=== PATIENT | male | born 1930 | race Caucasian/White ===

== ENCOUNTER 2016-08-14 11:22 | Inpatient (IN) | payer MEDICARE, OTHER ==
[~2016-08-14] VITALS: Ht 177.8 cm; Wt 80.7 kg
[2016-08-14] VITALS (51 sets, daily range): BP systolic 39–159; BP diastolic 15–108
[~2016-08-14 11:22] MED LIST: AMIO200T2 PO; AMOX25TA PO; ASPI325T2 PO; ATOR20TA PO; CARB-93 PO; CYCL-289 PO; DESI100T PO; DIGO125T PO; ESZO1TAB8 PO; LORA0.5T PO; METH5TAB4 PO; OXAN10TA PO; RIVA10TA PO; SOTA80TA PO; TAMS-12 GT; TAMS-12 PO; ZOLP5TAB2 PO; carbidopa PO
[2016-08-14 11:35] LABS: BASOPHILS # (AUTO) 0.5 /CMM (0.0-0.2); BASOPHILS % (AUTO) 2.5 % (0.0-2.0); EOSINOPHILS % (AUTO) 0.1 % (0.0-6.0); HEMATOCRIT 31 % (39-51); HEMOGLOBIN 10.3 g/dL (13.5-17.5); LYMPHOCYTES # (AUTO) 2.3 /CMM (0.8-4.8); LYMPHOCYTES % (AUTO) 12.3 % (20.0-44.0); MEAN CORPUSCULAR HEMOGLOBIN 26 PG (26.0-33.0); MEAN CORPUSCULAR HGB CONC 33 g/dl (31.0-36.0); MEAN CORPUSCULAR VOLUME 77 fL (80-96); MONOCYTES # (AUTO) 1.2 /CMM (0.1-1.30); MONOCYTES % (AUTO) 6.4 % (2.0-12.0); NEUTROPHILS # (AUTO) 14.5 /CMM (1.8-8.9); NEUTROPHILS % (AUTO) 78.7 % (43.0-81.0); PLATELET COUNT (AUTO) 277 /CMM (150-450); RDW COEFFICIENT OF VARIATION 18.8 (11.5-15.0); WHITE BLOOD COUNT (AUTO) 18.5 K/uL (4.3-11.0)
--- NOTE | 2016-08-14 11:36 | NUR ---
BIB RA FROM HOME FOR SOB AND ALOC, PATIENT IS NON RESPONSIVE TO VERBAL AND PHYSICAL STIMULI, PATIENT PLACED ON MONITOR, MD AT BEDSIDE UPON ARRIVAL, PLACED ON NON REBREATHER, WILL CONTINUE TO MONITOR CLOSELY.
[2016-08-14] MEDS ORDERED: CARB25TA3 PO (11:41)
[2016-08-14] MEDS ORDERED: CEFT1VIA15 IV (11:41)
[2016-08-14] MEDS ORDERED: ASPI81TA2 PO (11:41)
[2016-08-14] MEDS ORDERED: ZOLP6.252 PO (11:41)
[2016-08-14] MEDS ORDERED: VANC125C11 PO (11:41)
[2016-08-14] MEDS ORDERED: CEFD300C3 PO (11:41)
[2016-08-14] MEDS ORDERED: FLUC150T PO (11:41)
[2016-08-14] MEDS ORDERED: [UNRECOGNIZED DRUG - OTHER] PO (11:44)
[2016-08-14 11:45] LABS: CALCIUM, SERUM 9.1 mg/dL (8.5-10.1); CARBON DIOXIDE 21 mmol/L (21-32); CHLORIDE 107 mmol/L (98-107); CREATININE 1.9 mg/dL (0.6-1.3); GLUCOSE 110 mg/dL (74-106); POTASSIUM 5.1 mmol/L (3.5-5.1); SODIUM SERUM 139 mmol/L (136-145); UREA NITROGEN, BLOOD 22 mg/dL (7-18)
[2016-08-14 11:47] LABS: INR 1.44 (0.87-1.13); PROTHROMBIN TIME 15.3 SECS (9.5-12.7)
[2016-08-14 11:51] LABS: ALANINE AMINOTRANSFERASE 35 U/L (12-78); ALKALINE PHOSPHATASE 105 U/L (46-116); ASPARTATE AMINOTRANSFERASE 886 U/L (15-37); BILIRUBIN,DIRECT 0.2 mg/dL (0.0-0.2); BILIRUBIN,TOTAL 0.7 mg/dL (0.2-1.0); TOTAL PROTEIN, SERUM 5.8 g/dL (6.4-8.2)
[2016-08-14 11:53] LABS: TROPONIN I 0.255 ng/mL (0.00-0.056)
[2016-08-14 11:54] LABS: ABG BASE EXCESS -6.3 mmol/L; ABG OXYGEN SATURATION 99.4 % (92.0-98.5); ABG PCO2 23.5 mmHg (35.0-45.0); ABG PH 7.454 (7.350-7.450); ABG PO2 360.3 mmHg (75.0-100.0); AaDO2 329.2 mmHg; COHb 0.5 % (0.5-1.5); MetHb 0.6 % (0.0-1.5); O2Hb 98.3 % (94.0-97.0); SITE, ABG Left Femoral; VENT MODE, BG NON REBREATHER
[2016-08-14] MEDS ORDERED: PIPERACILLIN /TAZOBACTAM 3.375 G in IV D5W 50 ML IV ONE (12:00)
[2016-08-14] MEDS ORDERED: METH20TA9 PO (12:01)
[2016-08-14] MEDS ORDERED: IV NS 0.9% 2,000 ML ONE (12:06)
[2016-08-14] MEDS ORDERED: IV NS 0.9% 500 ML IV ONE ×3 (12:06→18:40)
[2016-08-14] MEDS ORDERED: ACETAMINOPHEN 650 MG/SUPP.RECT RC ONE ×2 (12:06→12:30)
[2016-08-14] MEDS ORDERED: IV SET PRIMARY 1 EA INFUS.SET MC ONE (12:06)
--- NOTE | 2016-08-14 12:07 | NUR ---
CODE SEPSIS CALLED
[2016-08-14] MEDS ORDERED: IV SET PRIMARY PUMP SET 1 EA INFUS.SET MC ONE ×4 (12:08→21:29)
--- NOTE | 2016-08-14 12:13 | NUR ---
PT PLACED ON BIPAP DUE TO INCREASED WOB. BREATH SOUNDS CLEAR BILATERAL. BIPAP SETTINGS BELLOW PER RT DRIVEN PROTCOL: IPAP 15 EPAP 5 RATE 12 FIO2 40% Addendum: 08/14/16 at 1215 by BRANDYN SCOTT RT Amended: Links added.
--- NOTE | 2016-08-14 12:15 | NUR ---
CALLED NURSING SUP. FOR ICU BED
[2016-08-14] MEDS ORDERED: ASPIRIN 300 MG/SUPP.RECT RC ONE ×2 (12:28→12:30)
[2016-08-14] MEDS ORDERED: IV NS 0.9% 1,000 ML IV ONE ×2 (12:30)
[2016-08-14] MEDS ORDERED: VANCOMYCIN 1 GM in IV D5W 250 ML IV ONE ×2 (12:30→14:30)
--- NOTE | 2016-08-14 12:30 | NUR ---
EPIC PAGED, DR.SIMONA Jolly MAT MAKER
[2016-08-14 12:41] LABS: APPEARANCE,URINE Turbid (CLEAR); BILIRUBIN,URINE SMALL (NEGATIVE); BLOOD, URINE Trace-lysed Ery/uL (NEGATIVE); COLOR,URINE Yellow (YELLOW); KETONES,URINE 15 (NEGATIVE); LEUKOCYTE ESTERASE ,URINE Large (NEGATIVE); NITRITE, URINE Negative (NEGATIVE); PH,URINE 5.5 (5.0-8.0); PROTEIN,URINE >=300 mg/dl (NEGATIVE); UGLUCOSE Negative (NEGATIVE); UROBILINOGEN,URINE 0.2 EU/dL (0.2)
[2016-08-14 12:49] LABS: WBC,URINE 21-50 /HPF (0-3)
[2016-08-14 12:50] LABS: SQUAMOUS EPITHELIAL CELL,UR Few /HPF (None Seen); URINE AMORPHOUS URATE Moderate /HPF (None Seen); YEAST,URINE Few /HPF (None Seen)
[2016-08-14 12:51] LABS: BACTERIA,URINE 2+ /HPF (None Seen)
--- NOTE | 2016-08-14 13:00 | NUR ---
86 YEAR OLD WHITE MALE ADMITTED FROM ER VIA [facility] TO ROOM 259. DX SEPSIS. PT ARRIVED MINIMALLY RESPONSIVE WITH SOME RUE SPONTAN MOVEMENT. ABG NOTED AND O2 ON VIA SIMPLE MASK AT 6 LPM N/C. INITIAL SBP 100. AFIB CONTROLLED ON MONITOR. 2.5 LITERS OF NS STARTED IN ER WHERE NOT INFUSEDAND ARRIVED IN FULL BAGS UPON ADMISSION -ALL FLUIDS PUT ON PUMPS AT 1000MLSHR. WILL INFUSE VANCO FROM ER. PT ARRIVED IN LG AMT BROWN STOOL-CLEANED AND KCI MATTRESS APPLIED
--- NOTE | 2016-08-14 13:12 | NUR ---
PT PLACED ON 8LPM O2 FLOW VIA SIMPLE MASK WITH SPO2 100%. BIPAP ON STD BY @ BEDSIDE Addendum: 08/14/16 at 1314 by BRANDYN SCOTT RT Amended: Links added.
--- NOTE | 2016-08-14 13:15 | NUR ---
PT'S FATHER IS AN ER MD AT [facility] AND SON AND PT'S REQUEST DNI/DNR STATUS-ORDERS FOR SAME FORM DR MARCOS
[2016-08-14] MEDS: NOREPINEPHRINE 16 MG in IV D5W 500 ML IV PRN (14:05)
[2016-08-14] MEDS ORDERED: NOREPINEPHRINE 8 MG in IV D5W 500 ML IV PRN (14:30)
[2016-08-14] MEDS ORDERED: MEROPENEM 1 G in IV NS 0.9% 100 ML IV SCH (14:30)
[2016-08-14] MEDS ORDERED: METRONIDAZOLE 500MG/ NS 100ML 100 ML IV SCH (14:30)
[2016-08-14] MEDS ORDERED: IV NS 0.9% 1,000 ML BAG IV ONE (14:30)
[2016-08-14] MEDS ORDERED: ACETAMINOPHEN 325 MG TABLET PO PRN (14:30)
[2016-08-14] MEDS ORDERED: MORPHINE SULFATE INJ 2 MG/ML DISP.SYRIN IV PRN (14:30)
[2016-08-14] MEDS ORDERED: ONDANSETRON HCL/PF 4 MG/2 ML VIAL IVP PRN (14:30)
[2016-08-14] MEDS ORDERED: MEROPENEM 500 MG in IV NS 0.9% 50 ML IV SCH (14:30)
--- NOTE | 2016-08-14 14:34 | NUR ---
D/W TIFFANY MARCOS AND ELIUD. LEVOPHED STARTED AT 1405 FOR SBP 70 AND FLUID CHALLENGES ARE BEING COMPLETED. FAMILY AT BEDSIDE
[2016-08-14] MEDS ORDERED: IV NS 0.9% 100 ML IV PRN (15:00)
[2016-08-14] MEDS ORDERED: SECONDARY IV SET 1 EA INFUS.SET MC ONE ×2 (15:26→16:58)
--- NOTE | 2016-08-14 15:33 | NUR ---
SON DR BLACKWOOD REFUSES NGT AND DR GLADIS KLINE AWARE AND WILL ASK CARDIOLOGY TO SEE (REGARDING BETAPACE, ALSO).
[2016-08-14] MEDS ORDERED: FEE PK DOSING 1 MIN EA MC ONE (15:50)
[2016-08-14] MEDS ORDERED: IV NS 0.9% 1,000 ML IV PRN (16:00)
[2016-08-14] MEDS ORDERED: FLUCONAZOLE IN NS 100 MG in PREMIX 1 EA IV SCH ×2 (16:00)
[2016-08-14] MEDS ORDERED: SOTALOL HCL 80 MG TABLET PO SCH (17:00)
[2016-08-14] MEDS ORDERED: VANCOMYCIN HCL 125 MG/2.5 ML ORAL.SUSP PO SCH (17:00)
[2016-08-14] MEDS ORDERED: CARBIDOPA 25 MG TABLET PO SCH ×3 (17:00)
[2016-08-14] MEDS ORDERED: CARBIDOPA/LEVODOPA 25/100 MG 1 UDTAB PO SCH ×2 (17:00)
[2016-08-14] MEDS: METRONIDAZOLE 500MG/ NS 100ML 100 ML IV SCH (17:00)
[2016-08-14] MEDS: MICAFUNGIN SODIUM 100 MG in IV NS 0.9% 100 ML IV SCH (17:05)
--- NOTE | 2016-08-14 17:15 | NUR ---
ALL PO MEDS ON HOLD PT OBTUNDED AND SON REFUSES NGT. D/W DR AYAKA DE LEÓN WILL BE IN THIS PM
[2016-08-14] MEDS: MEROPENEM 1 G in IV NS 0.9% 100 ML IV SCH (18:11)
--- NOTE | 2016-08-14 18:29 | NUR ---
URINE OUTPUT 35 ML X 4 HR WITH INCREASING LEVOPHED NEED CURRENTLY AT 9 MCG MIN-DR KLINE NOTIFIED
--- NOTE | 2016-08-14 19:00 | NUR ---
FURTHER DROP IN BP WITH INCREASED PRESSOR NEED. NS FLUID CHALLENGE RUNNING. FAMILY AT BEDSIDE
[2016-08-14] MEDS ORDERED: IV NS 0.9% 1,000 ML BAG IV STA (19:25)
[2016-08-14] MEDS ORDERED: PHENYLEPHRINE 80 MG in IV D5W 250 ML IV PRN (19:30)
[2016-08-14 20:06] LABS: CARBON DIOXIDE 15 mmol/L (21-32); CHLORIDE 108 mmol/L (98-107); CREATININE 2.4 mg/dL (0.6-1.3); GLUCOSE 117 mg/dL (74-106); SODIUM SERUM 138 mmol/L (136-145); UREA NITROGEN, BLOOD 26 mg/dL (7-18)
[2016-08-14 20:07] LABS: TROPONIN I 0.287 ng/mL (0.00-0.056)
--- NOTE | 2016-08-14 20:20 | NUR ---
SCHOOL COMMUNITY RELATIONS COORDINATOR NOTES RECEIVED PT IN BED, AWAKE BUT EXTREMELY LETHARGIC. A/O X3, ABLE TO SAY NAME, YEAR AND HOSPITAL. ON O2 VIA NC AT 4 LPM, LASHON FAIR. TELE READS CONTROLLED AFIB IN 80s. ARCHER CATH IN PLACE, MINIMAL TO NO URINE OUTPUT. MILD LUNG CONGESTION TO AUSCULTATION. NO NGT AND NO ORAL SUCTION PER FAMILY. SIA PICC IN PLACE, RUNNING LEVO AT 25 MCG/MIN AND NS AT 80 ML/HR. FAMILY AT BEDSIDE. DR MARLEY MADE AWARE OF RECENT LACTIC ACID OF 5.4 AND TROPONIN OF 0.287. PT TURNED AND REPOSITIONED. NO SIGN OF PAIN AT THIS TIME.
[2016-08-14] MEDS ORDERED: AZTREONAM 1 G in IV NS 0.9% 50 ML IV SCH (21:00)
[2016-08-14] MEDS: Sodium Bicarbonate 150 MEQ in IV D5W 1,000 ML IV PRN (21:41)
[2016-08-14] MEDS ORDERED: TAMSULOSIN 0.4 MG CAP.SR.24H PO SCH (22:00)
[2016-08-15] VITALS (76 sets, daily range): BP systolic 76–134; BP diastolic 38–90
[2016-08-15] MEDS ORDERED: ALBUTEROL FS 2.5 MG/3 ML VIAL.NEB NEB SCH (01:00)
[2016-08-15] MEDS ORDERED: SECONDARY IV SET 1 EA INFUS.SET MC ONE ×2 (01:53→06:33)
[2016-08-15] MEDS ORDERED: IPRATROPIUM NEB FS 0.5 MG/2.5 ML AMPUL.NEB NEB PRN (02:00)
[2016-08-15] MEDS ORDERED: ALBUTEROL FS 2.5 MG/3 ML VIAL.NEB NEB PRN (02:00)
[2016-08-15] MEDS: METRONIDAZOLE 500MG/ NS 100ML 100 ML IV SCH ×2 (02:06→08:59)
[2016-08-15 05:05] LABS: BASOPHILS # (AUTO) 0.1 /CMM (0.0-0.2); BASOPHILS % (AUTO) 0.3 % (0.0-2.0); EOSINOPHILS % (AUTO) 0.1 % (0.0-6.0); HEMATOCRIT 31 % (39-51); HEMOGLOBIN 10.1 g/dL (13.5-17.5); LYMPHOCYTES # (AUTO) 1.4 /CMM (0.8-4.8); MEAN CORPUSCULAR HEMOGLOBIN 25 PG (26.0-33.0); MEAN CORPUSCULAR HGB CONC 32 g/dl (31.0-36.0); MEAN CORPUSCULAR VOLUME 78 fL (80-96); MONOCYTES % (AUTO) 4.3 % (2.0-12.0); NEUTROPHILS # (AUTO) 21.2 /CMM (1.8-8.9); NEUTROPHILS % (AUTO) 89.3 % (43.0-81.0); PLATELET COUNT (AUTO) 201 /CMM (150-450); RDW COEFFICIENT OF VARIATION 20.2 (11.5-15.0); WHITE BLOOD COUNT (AUTO) 23.8 K/uL (4.3-11.0)
[2016-08-15 05:12] LABS: INR 1.88 (0.87-1.13); PROTHROMBIN TIME 20.9 SECS (9.5-12.7); TROPONIN I 0.252 ng/mL (0.00-0.056)
[2016-08-15 05:13] LABS: ALANINE AMINOTRANSFERASE 196 U/L (12-78); ALBUMIN 1.7 g/dL (3.4-5.0); ALKALINE PHOSPHATASE 121 U/L (46-116); BILIRUBIN,TOTAL 0.7 mg/dL (0.2-1.0); CALCIUM, SERUM 7.8 mg/dL (8.5-10.1); CARBON DIOXIDE 18 mmol/L (21-32); CHLORIDE 108 mmol/L (98-107); CREATININE 2.5 mg/dL (0.6-1.3); GLUCOSE 119 mg/dL (74-106); POTASSIUM 4.7 mmol/L (3.5-5.1); SODIUM SERUM 141 mmol/L (136-145); TOTAL PROTEIN, SERUM 4.9 g/dL (6.4-8.2); UREA NITROGEN, BLOOD 31 mg/dL (7-18)
[2016-08-15 05:30] LABS: ASPARTATE AMINOTRANSFERASE 2356 U/L (15-37)
[2016-08-15 05:51] LABS: BAND % (MANUAL) 2 % (0.0-5.0); LYMPHOCYTES % (MANUAL) 5 % (16-48); MONOCYTES % (MANUAL) 6 % (0-11.0); NEUTROPHILS % (MANUAL) 87 (42-76)
[2016-08-15] MEDS ORDERED: MEROPENEM 1 G VIAL IV ONE (06:25)
[2016-08-15] MEDS ORDERED: IV NS 0.9% 100 ML IV ONE (06:29)
[2016-08-15] MEDS: MEROPENEM 1 G in IV NS 0.9% 100 ML IV SCH ×2 (06:38→18:31)
--- NOTE | 2016-08-15 07:46 | NUR ---
ABG THIS AM 7.35/PCO2 23/PO2 108 ON BICARB GTT WITH N/C AT 36% FIO2. TIFFANY KLINE AND AYAKA AT BEDSIDE AND HERE TO R/V WITH SON DR BLACKWOOD ALL LABS/CXR/EVENTS
[2016-08-15] MEDS: Sodium Bicarbonate 150 MEQ in IV D5W 1,000 ML IV PRN (08:35)
[2016-08-15] MEDS: PANTOPRAZOLE 40 MG VIAL IV SCH (08:59)
[2016-08-15] MEDS: HEPARIN SODIUM, PORCINE 5000 UNITS/1 ML VIAL SQ SCH ×2 (08:59→21:50)
[2016-08-15] MEDS ORDERED: [UNRECOGNIZED DRUG - OTHER] PO SCH (09:00)
[2016-08-15] MEDS: Sodium Bicarbonate 100 MEQ in IV D5W 1,000 ML IV PRN ×2 (09:58→22:45)
[2016-08-15] MEDS: ALBUMIN 25% 25 GM in PREMIX 1 EA IV SCH ×3 (09:59→21:50)
--- NOTE | 2016-08-15 10:57 | NUR ---
BICARB GTT REDUCED TO 75 MLS/HR. ALBUMIN GIVEN. AGAIN D/W ALL MDS LOW URINE OUTPUT
[2016-08-15 12:52] LABS: CREATININE, URINE 216.7 MG/DL (30.0-125.0)
[2016-08-15] MEDS ORDERED: METRONIDAZOLE 500MG/ NS 100ML 500 MG in PREMIX 1 EA IV SCH (13:00)
[2016-08-15] MEDS ORDERED: VANCOMYCIN 1 GM in IV D5W 250 ML IV SCH (13:00)
[2016-08-15] MEDS ORDERED: DIGOXIN 0.125 MG TABLET PO SCH (13:00)
--- NOTE | 2016-08-15 13:00 | NUR ---
US ABDOMEN AND U.O. 5 MLS HR R/V'D W TIFFANY JORDAN AND ELIUD
--- NOTE | 2016-08-15 13:44 | NUR ---
D/W DR BRUNER ALL EVENTS, TEST, URINE OUTPUT
[2016-08-15] MEDS ORDERED: IV NS 0.9% 250 ML IV ONE (14:35)
[2016-08-15] MEDS: NOREPINEPHRINE 16 MG in IV D5W 500 ML IV PRN (14:44)
[2016-08-15] MEDS: Z GUARD REMEDY 2 OZ OINT TP PRN ×2 (16:09→17:14)
[2016-08-15] MEDS: MICAFUNGIN SODIUM 100 MG in IV NS 0.9% 100 ML IV SCH (16:10)
--- NOTE | 2016-08-15 17:00 | NUR ---
ONGOING LIASON WITH SON JAISON AND REGARDING GOALS OF CARE. TO ADD LOW DOSE ATIVAN PRN FOR SOB
[2016-08-15] MEDS: METRONIDAZOLE 500MG/ NS 100ML 500 MG in PREMIX 1 EA IV SCH (17:14)
[2016-08-15] MEDS ORDERED: LORAZEPAM INJ 2 MG/ML VIAL IV PRN ×2 (18:00)
--- NOTE | 2016-08-15 20:00 | NUR ---
PRESCHOOL EDUCATION DIRECTOR NOTES RECEIVED PT IN BED, AWAKE BUT EXTREMELY LETHARGIC. ABLE TO ANSWER YES/NO QUESTIONS. DENIES PAIN. ON O2 VIA NC AT 6 LPM, LASHON WELL. TELE READS CONTROLLED AFIB IN 90s. ARCHER CATH IN PLACE, MINIMAL TO NO URINE OUTPUT. MILD LUNG CONGESTION TO AUSCULTATION AND OCCASIONAL WHEEZING. NO NGT AND NO ORAL SUCTION PER FAMILY. SIA PICC IN PLACE, RUNNING LEVO AT 8 MCG/MIN AND BICARB 2 AMPS AT 75 ML/HR. FAMILY AT BEDSIDE. PT TURNED AND REPOSITIONED. NO SIGN OF PAIN AT THIS TIME.
[2016-08-15] MEDS ORDERED: IV SET PRIMARY PUMP SET 1 EA INFUS.SET MC ONE (21:09)
[2016-08-15] MEDS ORDERED: ASPIRIN 81 MG TAB.CHEW PO SCH (22:00)
[2016-08-16] VITALS (38 sets, daily range): BP systolic 84–144; BP diastolic 48–87
[2016-08-16] MEDS ORDERED: SECONDARY IV SET 1 EA INFUS.SET MC ONE (00:09)
[2016-08-16] MEDS: METRONIDAZOLE 500MG/ NS 100ML 500 MG in PREMIX 1 EA IV SCH ×2 (00:14→09:01)
[2016-08-16] MEDS ORDERED: VANCOMYCIN 1 GM in IV D5W 250 ML IV SCH (01:00)
[2016-08-16] MEDS ORDERED: ALBUTEROL FS 2.5 MG/3 ML VIAL.NEB NEB PRN (03:00)
[2016-08-16] MEDS ORDERED: ALBUTEROL FS 2.5 MG/0.5 ML VIAL.NEB NEB PRN (03:00)
[2016-08-16] MEDS ORDERED: IV SET PRIMARY PUMP SET 1 EA INFUS.SET MC ONE (03:03)
--- NOTE | 2016-08-16 03:30 | NUR ---
MANAGER ACUTE NOTES DR BLACKWOOD AT BEDSIDE. UPDATED ON PATIENT CONDITION. DOES NOT WANT TO START SECOND PRESSOR IF LEVOPHED IS ON MAX RATE. ORDERED ALBUTEROL INHALATION PRN SOB/WHEEZING.
[2016-08-16] MEDS: ALBUMIN 25% 25 GM in PREMIX 1 EA IV SCH (04:46)
[2016-08-16 05:18] LABS: BASOPHILS # (AUTO) 0.1 /CMM (0.0-0.2); BASOPHILS % (AUTO) 0.3 % (0.0-2.0); EOSINOPHILS % (AUTO) 0.1 % (0.0-6.0); HEMATOCRIT 31 % (39-51); HEMOGLOBIN 9.9 g/dL (13.5-17.5); LYMPHOCYTES # (AUTO) 1.1 /CMM (0.8-4.8); LYMPHOCYTES % (AUTO) 4.5 % (20.0-44.0); MEAN CORPUSCULAR HEMOGLOBIN 25 PG (26.0-33.0); MEAN CORPUSCULAR HGB CONC 32 g/dl (31.0-36.0); MEAN CORPUSCULAR VOLUME 78 fL (80-96); MONOCYTES # (AUTO) 0.8 /CMM (0.1-1.30); MONOCYTES % (AUTO) 3.3 % (2.0-12.0); NEUTROPHILS # (AUTO) 21.9 /CMM (1.8-8.9); NEUTROPHILS % (AUTO) 91.8 % (43.0-81.0); PLATELET COUNT (AUTO) 142 /CMM (150-450); RDW COEFFICIENT OF VARIATION 21.1 (11.5-15.0); WHITE BLOOD COUNT (AUTO) 23.9 K/uL (4.3-11.0)
[2016-08-16 05:29] LABS: CALCIUM, SERUM 7.6 mg/dL (8.5-10.1); CARBON DIOXIDE 18 mmol/L (21-32); CHLORIDE 104 mmol/L (98-107); CREATININE 3.3 mg/dL (0.6-1.3); GLUCOSE 133 mg/dL (74-106); MAGNESIUM 1.7 mg/dL (1.8-2.4); POTASSIUM 4.5 mmol/L (3.5-5.1); SODIUM SERUM 140 mmol/L (136-145); UREA NITROGEN, BLOOD 44 mg/dL (7-18); VANCOMYCIN,TROUGH 26 ug/ml (12-20)
[2016-08-16 06:04] LABS: LYMPHOCYTES % (MANUAL) 8 % (16-48); MONOCYTES % (MANUAL) 4 % (0-11.0); NEUTROPHILS % (MANUAL) 88 (42-76)
[2016-08-16] MEDS: MEROPENEM 1 G in IV NS 0.9% 100 ML IV SCH (06:28)
--- NOTE | 2016-08-16 06:30 | NUR ---
QUICK[employer]OOKS BOOKKEEPER NOTES CONTACTED DR RAMSEY AND MADE AWARE OF CRITICAL LAB OF LACTIC ACID OF 6.9 AND MAG OF 1.7. NO ORDERS GIVEN.
--- NOTE | 2016-08-16 06:49 | NUR ---
SURVEY MANAGER NOTES VANCO TROUGH WAS DRAWN WITH MORNING LABS INSTEAD OF ONE HOUR PRIOR VANCO DOSE. VANCO TROUGH RESULT IS 26. WILL CALL PHARMACY AT 0700 TO MAKE AWARE OF INACCURATE RESULT.
[2016-08-16] MEDS ORDERED: Magnesium 1GM/D5W 100ML PREMIX 100 ML IV SCH (07:00)
[2016-08-16 07:41] LABS: ABG BASE EXCESS -11.2 mmol/L; ABG OXYGEN SATURATION 95.9 % (92.0-98.5); ABG PCO2 23.2 mmHg (35.0-45.0); ABG PH 7.357 (7.350-7.450); ABG PO2 96.2 mmHg (75.0-100.0); AaDO2 191.1 mmHg; COHb 0.7 % (0.5-1.5); MetHb 0.7 % (0.0-1.5); O2Hb 94.6 % (94.0-97.0); SITE, ABG Left Radial; VENT MODE, BG NASAL CANNULA
--- NOTE | 2016-08-16 08:00 | NUR ---
R/V'D WITH TIFFANY MARLEY, ELIUD, AND JULIAN ALL ABGS, LABS, MEDS, PLAN. COMFORT FOCUSSED CARE WILL BE INITIATED ONCE FAMILY IS ALL IN AGREEMENT
[2016-08-16] MEDS ORDERED: NOREPINEPHRINE 16 MG in IV D5W 500 ML IV PRN (08:30)
[2016-08-16] MEDS ORDERED: ATROPINE SULFATE OPHTH SOLN 15 ML BOTTLE SL PRN (09:00)
[2016-08-16] MEDS ORDERED: SCOPOLAMINE HBR 1 EA PATCH.TD72 TD SCH (09:00)
[2016-08-16] MEDS: PANTOPRAZOLE 40 MG VIAL IV SCH (09:01)
[2016-08-16] MEDS: HEPARIN SODIUM, PORCINE 5000 UNITS/1 ML VIAL SQ SCH (09:02)
[2016-08-16 09:46] LABS: ALBUMIN 2.7 g/dL (3.4-5.0); BILIRUBIN,DIRECT 0.4 mg/dL (0.0-0.2); TOTAL PROTEIN, SERUM 5.1 g/dL (6.4-8.2)
--- NOTE | 2016-08-16 10:30 | NUR ---
ONGOING LOW DOSES OF ATIVAN AND MORPHINE DAUGHTER INSTRUCTS FOR RR> 35 WITH TEMPORARY RELIEF
--- NOTE | 2016-08-16 10:54 | NUR ---
PT NOW NOT BREATHING WITH PULSE SLOWING. AND OTHER FAMILY AT BEDSIDE. DAUGHTER DOES NOT WANT ME TO INCREASE THE LEVOPHED OR GIVE ANY ADDITIONAL CHEMICALS. DR BLACKWOOD CALLED TO ATTEND
--- NOTE | 2016-08-16 11:00 | NUR ---
PT PRONOUNCED . DNR/DNI STATUS. DR LASHA BLACKWOOD AT BEDSIDE AND CONCURS THAT HIS FATHER HAS . ASYSTOLE ON MONITOR. NO AUDIBLE HEART TONES. NO RESPIR EFFORT. NO OBTAINABLE BP. PUPILS FIXED AND DILATED. FAMILY AT BEDSIDE
--- NOTE | 2016-08-16 11:30 | NUR ---
[facility] DECLINES PT
--- NOTE | 2016-08-16 12:00 | NUR ---
ONGOING POST MORTEM CARE TO FAMILY
--- NOTE | 2016-08-16 13:00 | NUR ---
BODY PICKED UP BY [facility]. FAMILY ALL HERE
== END 2016-08-16 11:00 | disposition expired ==
LOC: ER 11:24 → ICU 13:13
PROVIDERS: ADMIT Internal Medicine; ATTEND Internal Medicine
PROC: 02HV33Z Insertion of Infusion Device into Superior Vena Cava, Percutaneous Approach (ICD-10-PCS; principal; 2016-08-15)
PROC: B548ZZA Ultrasonography of Superior Vena Cava, Guidance (ICD-10-PCS; 2016-08-15)
DX: T82.7XXA Infection and inflammatory reaction due to other cardiac and vascular devices, implants and grafts, initial encounter (principal); A41.9 Sepsis, unspecified organism; I21.4 Non-ST elevation (NSTEMI) myocardial infarction; R65.21 Severe sepsis with septic shock; E43 Unspecified severe protein-calorie malnutrition; K72.00 Acute and subacute hepatic failure without coma; N17.0 Acute kidney failure with tubular necrosis; R53.2 Functional quadriplegia; J69.0 Pneumonitis due to inhalation of food and vomit; G93.41 Metabolic encephalopathy; D65 Disseminated intravascular coagulation [defibrination syndrome]; J96.00 Acute respiratory failure, unspecified whether with hypoxia or hypercapnia; D68.59 Other primary thrombophilia; E87.2 Acidosis; B37.49 Other urogenital candidiasis; G20 Parkinson's disease; Y83.2 Surgical operation with anastomosis, bypass or graft as the cause of abnormal reaction of the patient, or of later complication, without mention of misadventure at the time of the procedure; Y92.009 Unspecified place in unspecified non-institutional (private) residence as the place of occurrence of the external cause; N18.9 Chronic kidney disease, unspecified; Z66 Do not resuscitate; Z87.891 Personal history of nicotine dependence; Z90.49 Acquired absence of other specified parts of digestive tract; I12.9 Hypertensive chronic kidney disease with stage 1 through stage 4 chronic kidney disease, or unspecified chronic kidney disease; I48.91 Unspecified atrial fibrillation; E83.39 Other disorders of phosphorus metabolism; E78.5 Hyperlipidemia, unspecified; E83.42 Hypomagnesemia; F02.80 Dementia in other diseases classified elsewhere, unspecified severity, without behavioral disturbance, psychotic disturbance, mood disturbance, and anxiety; D63.8 Anemia in other chronic diseases classified elsewhere; N40.1 Benign prostatic hyperplasia with lower urinary tract symptoms; E86.0 Dehydration; Z68.25 Body mass index [BMI] 25.0-25.9, adult; Z79.2 Long term (current) use of antibiotics; Z85.820 Personal history of malignant melanoma of skin; I25.10 Atherosclerotic heart disease of native coronary artery without angina pectoris; Z93.3 Colostomy status
CPT/HCPCS: 36415; 36600; 71010-TC; 76700-TC; 80048-TC; 80053-TC; 80076-TC; 80162-TC; 80202-TC; 81000-TC; 82553-TC; 82570-TC; 82803-TC; 83605-TC; 83735-TC; 84100-TC; 84300-TC; 84484-TC; 85025-TC; 85378-TC; 85385-TC; 85610-TC; 85730-TC; 86850-TC; 87040-TC; 87081-TC; 87086-TC; 93307-TC; A4216; C1751; C9113; J1450; J1644; J2060; J2185; J2248; J2270; J2370; J2543; J3370; J3475; J3490; J7030; J7040; J7050; J7060; J7070; P9047; Z7610